=== PATIENT | female | born 1985 | race Caucasian/White ===

== ENCOUNTER 2020-04-30 13:43 | Emergency (ER) | payer OTHER ==
[~2020-04-30] VITALS: Ht 162.6 cm; Wt 61.0 kg
--- NOTE | 2020-04-30 14:00 | NUR ---
[facility] FROM [facility] FOR NEURO CONSULT. PT C/O VISION CHANGES STARTED ABOUT 1030 FOR ABOUT 2 HOURS. NEGATIVE TESTING AT [facility]. PT STATES "MY VISION WAS CONFUSED, ITS HARD TO DESCRIBE", WHEN QUESTIONED ABOUT VISION CHANGES. PT DENIES TRAUMA. PT CONNECTED TO MONITORING. CALL LIGHT IN REACH. WARM BLANKET PROVIDED.
--- NOTE | 2020-04-30 16:14 | NUR ---
CONSULTING WITH NEUROLOGY
--- NOTE | 2020-04-30 16:58 | NUR ---
NEUROLOGY TO CONSULT WITH PT VIA [facility].
[2020-04-30] MEDS ORDERED: LORazepam 2 MG/ML, 1ML ONE (17:50)
--- NOTE | 2020-04-30 17:56 | NUR ---
PT GOING TO MRI. 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
[2020-04-30] MEDS ORDERED: LORazepam 2 MG/ML, 1ML IVPush ONE (18:00)
[2020-04-30] MEDS ORDERED: PLEASE ENTER ALLERGIES MC SCH (18:00)
[2020-04-30] MEDS ORDERED: GADOTERATE 7.5 MMOL/15 ML SYR ONE (18:13)
--- NOTE | 2020-04-30 18:40 | NUR ---
ALL RESULTS ARE BACK AT THIS TIME. CHART UP FOR RECHECK.
[2020-04-30 20:09] VITALS: BP 107/63
== END 2020-04-30 20:11 ==
LOC: ED 14:27
DX: G43.009 Migraine without aura, not intractable, without status migrainosus (principal); H53.133 Sudden visual loss, bilateral; J45.909 Unspecified asthma, uncomplicated
CPT/HCPCS: 36415; 70553; 80175; 80178; 96374; 99285; A9575; J2060